=== PATIENT | female | born 1955 | race Caucasian/White ===

== ENCOUNTER 2021-06-24 19:05 | Emergency (ER) | payer OTHER, MEDICARE ==
[~2021-06-24] VITALS: Ht 167.6 cm; Wt 80.9 kg
--- NOTE | 2021-06-24 20:05 | NUR ---
PT ROOMED. DR EVANS IN ROOM. EKG COMPLETED. HAIR AND MAKEUP DESIGNER AT BEDSIDE. STROKE RN HAS BEEN PAGED. PT SEEN AMBULATED FROM RNEY TO BED WITH GENERALIZED WEAKNESS. BILATERAL EQUAL RESEARCH AFFILIATE STRENGTH FOR ME. PT SPEAKS IN FULL COHERENT SENTENCES. NO FACIAL DROOP APPRECIATED. PT REPORTS FEELING LIGHTHEADED. PT DENIES ANY HEADACHE FROM FALLING AND HITTING HER HEAD. NOTES NECK PAIN THAT "STARTED 6-8 MONTHS AGO". NO NEW ACUTE NECK PAIN.
[2021-06-24 20:17] LABS: BASOPHILS % (AUTO) 0.6 % (0-1); EOSINOPHILS % (AUTO) 0 % (0-6); HEMATOCRIT 38.7 % (35.0-45.0); HEMOGLOBIN 13.1 g/dl (12.0-16.0); LYMPHOCYTES % (AUTO) 32.1 % (21-51); MEAN CORPUSCULAR HGB CONC 33.8 g/dL (33.0-36.5); MEAN CORPUSCULAR VOLUME 97.8 FL (78-98); MEAN PLATELET VOLUME 7.5 FL (7.4-10.4); MONOCYTES # (AUTO) 0.5 X10'3 (0-0.9); MONOCYTES % (AUTO) 7.4 % (2-12); NEUTROPHILS # (AUTO) 3.8 X10'3 (1.8-7.7); NEUTROPHILS % (AUTO) 59.9 % (42-75); PLATELET COUNT 273 X10'3 (140-440); RED BLOOD COUNT 3.96 X10'6 (4.20-5.60); RED CELL DISTRIBUTION WIDTH 14.3 % (11.5-14.5); WHITE BLOOD COUNT 6.4 X10'3 (4.5-11.0)
[2021-06-24 20:30] LABS: PARTIAL THROMBOPLASTIN TIME 27 SECONDS (22-32)
[2021-06-24 20:34] LABS: ALANINE AMINOTRANSFERASE 55 U/L (12-78); ALBUMIN 3.4 G/DL (3.4-5.0); ALBUMIN/GLOBULIN RATIO 0.9 (1.1-1.5); ALKALINE PHOSPHATASE 156 IU/L (46-116); ANION GAP 8 (8-16); ASPARTATE AMINO TRANSFERASE 53 U/L (10-37); BILIRUBIN,TOTAL 0.4 MG/DL (0.1-1.0); BLOOD UREA NITROGEN 13 MG/DL (7-18); BUN/CREATININE RATIO 8.9 (6.6-38.0); CALCIUM 8.8 MG/DL (8.5-10.1); CHLORIDE 106 MMOL/L (99-107); CREATININE 1.46 MG/DL (0.40-0.90); GLUCOSE 109 MG/DL (70-104); POTASSIUM 4.1 MMOL/L (3.5-5.1); SODIUM 139 MMOL/L (135-145); TOTAL CARBON DIOXIDE 24.9 MMOL/L (24-32); TOTAL PROTEIN 7.3 G/DL (6.4-8.2); eGFR 36 ML/MIN
[2021-06-24] MEDS ORDERED: normal saline 1000ML IV soln IVB ONE (20:45)
[2021-06-24 22:49] VITALS: BP 99/56
== END 2021-06-24 22:51 | disposition home or self-care (01) ==
LOC: ER 19:05
DX: S06.9X9A Unspecified intracranial injury with loss of consciousness of unspecified duration, initial encounter (principal); R53.1 Weakness; R55 Syncope and collapse; G40.909 Epilepsy, unspecified, not intractable, without status epilepticus; E78.00 Pure hypercholesterolemia, unspecified; W19.XXXA Unspecified fall, initial encounter; Z91.81 History of falling; Y93.89 Activity, other specified; Y92.89 Other specified places as the place of occurrence of the external cause; Y99.8 Other external cause status
CPT/HCPCS: 36415; 70450; 71045; 80053; 82948; 84484; 85025; 85610; 85730; 93005; 96360; 96361; 99285; J7030